=== PATIENT | female | born 1950 | race Two or more races ===

== ENCOUNTER 2020-08-16 08:25 | Outpatient (CLI) | payer OTHER | END 2020-08-16 11:01 | disposition home or self-care (01) | LOC: SONOGRAMA 08:25 | PROVIDERS: ATTEND Pathology Anatomic Pathology & Clinical Pathology | DX: E04.2 Nontoxic multinodular goiter (principal) ==

== ENCOUNTER 2024-11-10 18:40 | Emergency (ER) | payer OTHER ==
[~2024-11-10] VITALS: Ht 154.9 cm; Wt 65.8 kg
[2024-11-10] MEDS ORDERED: levoFLOXacin IN DEXTROSE 5 % 500MG/100ML PIGGYBAG IV ONE ×2 (19:30→19:31)
[2024-11-10 19:54] LABS: BASO % 0.3 % (0.1-1.2); EOS # 0.26 (0.04-0.54); EOS % 4.2 % (0.7-7.0); LYMPH # 2.14 (1.18-3.74); LYMPH % 34.7 % (19.3-53.1); MEAN PLATELET VOLUME 10.20 fl (9.4-12.4); MONO # 0.52 (0.24-0.82); MONO % 8.4 % (4.7-12.5); NEUT # 3.22 (1.56-6.13); NEUT % 52.2 % (34.0-71.1); RED CELL DISTRIBUTION WIDTH 12.7 % (11.6-14.4)
[2024-11-10 20:15] LABS: URINE APPEARANCE Cloudy; URINE BILIRRUBIN Negative (NEGATIVE); URINE BLOOD Large; URINE COLOR Orange; URINE GLUCOSE Negative (NEGATIVE); URINE KETONE Trace (NEGATIVE); URINE LEUKOCYTE Small; URINE NITRATE Negative; URINE UROBILINOGEN 0.2 E.U./dl
[2024-11-10 20:18] LABS: URINE BACTERIA 79.1 uL (0.0-1933); URINE EPITHELIAL CELLS 4.3 uL (0.0-38.8); URINE WBC 35.0 uL (0.0-23.2)
[2024-11-10 20:22] LABS: ALT/SGPT 42.0 U/L (12-78); AST/SGOT 39.0 U/L (15-37); BILIRUBIN TOTAL 0.49 mg/dL (0.3-1.2); BUN CREA RATIO 15.0 (7.0-25.0); CREATININE SERUM 0.68 mg/dL (0.55-1.02); GFR 84.12; GLOBULINA 3.3 G/DL (2.4-3.5); GLUCOSE FASTING 196.0 mg/dL (65-100); OSMOLALITY SERUM 288.0 MOSM/KG (275-295)
[2024-11-10 20:49] LABS: URINE PROTEIN 100 (NEGATIVE)
[2024-11-10 20:50] LABS: URINE CAST 0.29 uL (0.0-1.40)
[2024-11-10 20:53] LABS: URINE MUCUS MODERATE
[2024-11-10 20:54] LABS: URINE CRYSTALS FEW /HPF
[2024-11-10 20:56] LABS: URINE RBC 1331.1 uL (0.0-20.8)
[2024-11-10] MEDS ORDERED: LEVOFLOXACIN500 MG PO (23:14)
[2024-11-10] MEDS ORDERED: TAMS0.4C PO (23:14)
[2024-11-10] MEDS ORDERED: PEPCID AC20 MG PO (23:14)
== END 2024-11-11 00:19 | disposition home or self-care (01) ==
LOC: ER 18:40
PROVIDERS: General Practice
DX: R10.2 Pelvic and perineal pain (principal); R31.9 Hematuria, unspecified; Z88.0 Allergy status to penicillin